=== PATIENT | female | born 1945 | race Hispanic/Latino ===

== ENCOUNTER 2019-12-24 17:05 | Observation (INO) | payer OTHER ==
[~2019-12-24] VITALS: Ht 154.9 cm; Wt 72.6 kg
[2019-12-24 17:19] LABS: BASOPHILS % (AUTO) 0.3 % (0.0-5.0); EOSINOPHILS % (AUTO) 0.8 % (0.0-8.0); HEMATOCRIT 32.1 % (36-48); LYMPHOCYTES % (AUTO) 20.6 % (21.0-51.0); MEAN CORPUSCULAR HEMOGLOBIN 27.9 pg (27.0-33.0); MEAN CORPUSCULAR HGB CONC 32.7 g/dL (32.0-36.0); MEAN CORPUSCULAR VOLUME 85.4 fL (79-99); MONOCYTES % (AUTO) 7.2 % (3.0-13.0); NEUTROPHILS % (AUTO) 70.7 % (40.0-77.0); PLATELET COUNT (AUTO) 272 K/uL (130-400); RED BLOOD CELL COUNT(AUTO) 3.76 MIL/uL (4.00-5.50); RED CELL DISTRIBUTION WIDTH 12.9 % (11.0-15.5); WHITE BLOOD COUNT (AUTO) 9.6 K/uL (4.8-10.8)
[2019-12-24 17:30] LABS: CREATININE 1.2 mg/dL (0.5-1.5); POTASSIUM 5.3 mmol/L (3.5-5.1)
[2019-12-24] MEDS ORDERED: ASPIRIN 325 MG TABLET ONE (17:33)
[2019-12-24] MEDS ORDERED: NITROGLYCERIN 1GM/1 INCH PACKET TD ONE (17:34)
[2019-12-24 17:35] LABS: ALBUMIN 4.2 g/dL (3.5-5.0); BILIRUBIN,TOTAL 0.4 mg/dL (0.2-1.0); TOTAL PROTEIN, SERUM 8.4 g/dL (6.0-8.3)
[2019-12-24 17:36] LABS: INR 0.95 (0.85-1.15); PARTIAL THROMBOPLASTIN TIME 25.2 SEC (26.3-35.5)
[2019-12-24 17:53] LABS: B-TYPE NATRIURETIC PEPTIDE 37 pg/mL (0-100)
[2019-12-24 19:56] LABS: APPEARANCE,URINE Clear (CLEAR); BILIRUBIN,URINE Negative (NEGATIVE); COLOR,URINE Yellow (YELLOW); GLUCOSE, URINE (UA) Negative (NEGATIVE); KETONES,URINE Trace mg/dL (NEGATIVE); LEUKOCYTE ESTERASE ,URINE Large (NEGATIVE); NITRATE,URINE Negative (NEGATIVE); OCCULT BLOOD,URINE Negative (NEGATIVE); PROTEIN,URINE Negative (NEGATIVE)
[2019-12-24 20:22] LABS: BACTERIA,URINE Many /HPF (None Seen); MUCUS,URINE Few LPF (None Seen); RBC,URINE 0-1 /HPF (0-1); SQUAMOUS EPITHELIAL CELL,UR 0-2 /HPF (0-2); WBC,URINE 26-50 /HPF (0-1)
[2019-12-24 20:26] LABS: RETICULOCYTE % (AUTO) 1.14 % (0.42-2.23)
[2019-12-24 21:31] LABS: FERRITIN 83 ng/mL (15-150); IRON, SERUM 34 mcg/dL (50-170)
[2019-12-24] MEDS ORDERED: MORPHINE SULFATE 2 MG/ML 1ML SYG IVP PRN (21:45)
[2019-12-24] MEDS ORDERED: ACETAMINOPHEN 325 MG TAB PO PRN (21:45)
[2019-12-24] MEDS ORDERED: NITROGLYCERIN 0.4 MG SL TAB SL PRN (21:45)
[2019-12-24] MEDS ORDERED: ONDANSETRON HCL 4 MG/2 ML VIAL IVP PRN (21:45)
--- NOTE | 2019-12-24 21:46 | NUR ---
ADMISSION PT ADMITTED FROM ER INTO ROOM 405, AWAKE, ALERT AND VERBALLY RESPONSIVE. NO C/O CHEST PAIN, OR DISTRESS AT THIS TIME. PT AND SPOUSE AT BEDSIDE ORIENTED TO ROOM, CALL FISHER WITHIN REACH, BED IN LOWEST POSITION. Addendum: 12/24/19 at 5811 by MELIZA COFFEY RN Amended: Links added.
[2019-12-24 21:50] VITALS: BP 144/65
[2019-12-24] MEDS: NITROGLYCERIN 1GM/1 INCH PACKET TD SCH (23:10)
[2019-12-24] MEDS ORDERED: LISI-613 PO (23:25)
[2019-12-24] MEDS ORDERED: PRAV20TA4 PO (23:25)
[2019-12-24] MEDS ORDERED: METF500T20 PO (23:25)
[2019-12-25 00:12] VITALS: BP 143/71
[2019-12-25 01:51] LABS: CREATINE KINASE, TOTAL 36 U/L (21-232); MYOGLOBIN 47 ng/mL (10-92); TROPONIN I < 0.04 ng/mL (0.00-0.06)
[2019-12-25 04:16] VITALS: BP 123/62
[2019-12-25] MEDS: NITROGLYCERIN 1GM/1 INCH PACKET TD SCH ×2 (04:59→10:00)
[2019-12-25 05:15] LABS: HEMATOCRIT 30.5 % (36-48); MEAN CORPUSCULAR HEMOGLOBIN 27.9 pg (27.0-33.0); MEAN CORPUSCULAR HGB CONC 32.8 g/dL (32.0-36.0); PLATELET COUNT (AUTO) 272 K/uL (130-400); RED BLOOD CELL COUNT(AUTO) 3.59 MIL/uL (4.00-5.50); WHITE BLOOD COUNT (AUTO) 8.2 K/uL (4.8-10.8)
[2019-12-25 05:32] LABS: BASOPHILS % (MANUAL) 1 % (0-2); EOSINOPHILS % (MANUAL) 1 % (1-6); LYMPHOCYTES % (MANUAL) 28 % (22-44); MAN.DIFF COMMENT-IMPRESSION MANUAL DIFFERENTIAL; MONOCYTES % (MANUAL) 5 % (2-9); SEGMENTED NEUTROPHILS % 65 % (40-70)
[2019-12-25 05:36] LABS: ALANINE AMINOTRANSFERASE 18 U/L (12-78); ALBUMIN 3.8 g/dL (3.5-5.0); ASPARTATE AMINOTRANSFERASE 15 U/L (10-37); BILIRUBIN,TOTAL 0.6 mg/dL (0.2-1.0); CARBON DIOXIDE 24 mmol/L (21-32); CHLORIDE 102 mmol/L (101-111); CREATINE KINASE, TOTAL 39 U/L (21-232); GLOMERULAR FILTR. RATE CALC 58 mL/min (>60); GLUCOSE,RANDOM 109 mg/dL (70-105); MYOGLOBIN 45 ng/mL (10-92); POTASSIUM 4.6 mmol/L (3.5-5.1); SODIUM SERUM 138 mmol/L (136-145); TOTAL PROTEIN, SERUM 8.6 g/dL (6.0-8.3); TROPONIN I < 0.04 ng/mL (0.00-0.06); UREA NITROGEN, BLOOD 22 mg/dL (7-18)
[2019-12-25 08:00] VITALS: BP 132/64
[2019-12-25] MEDS ORDERED: METOPROLOL TARTRATE 25 MG TAB PO SCH (09:00)
[2019-12-25] MEDS ORDERED: PANTOPRAZOLE SODIUM 40 MG TABLET.DR PO SCH (09:00)
[2019-12-25] MEDS ORDERED: ENOXAPARIN SODIUM 40 MG/0.4 ML SYRINGE SQ SCH (09:00)
[2019-12-25 11:00] VITALS: BP 134/59
[2019-12-25] MEDS ORDERED: SULF1TAB41 PO (12:38)
--- NOTE | 2019-12-25 13:46 | NUR ---
pt and stated understanding of all d/c instructions on atypical chest pain and urinary tract infection; also stated understanding to : return to ed for any return of chest pain symptoms, f/u w/ dr vega at [facility] in 3-5 days and electronic script sent to [facility] for bactrim; iv access removed and pt wheeled downstairs.
[2019-12-25] MEDS ORDERED: METFORMIN HCL 500 MG TABLET PO SCH (17:00)
[2019-12-25] MEDS ORDERED: LISINOPRIL 20 MG TABLET PO SCH (21:00)
[2019-12-25] MEDS ORDERED: ATORVASTATIN CALCIUM 10 MG TABLET PO SCH (21:00)
== END 2019-12-25 13:30 | disposition home or self-care (01) ==
LOC: EDH 17:05 → EDHIP 20:03 → 4BH 21:37
PROVIDERS: ADMIT Internal Medicine Critical Care Medicine; ATTEND Internal Medicine Critical Care Medicine
DX: R07.89 Other chest pain (principal); N39.0 Urinary tract infection, site not specified; E11.9 Type 2 diabetes mellitus without complications; E78.5 Hyperlipidemia, unspecified; I10 Essential (primary) hypertension; D64.9 Anemia, unspecified; N28.89 Other specified disorders of kidney and ureter; Z90.710 Acquired absence of both cervix and uterus; Z90.49 Acquired absence of other specified parts of digestive tract; Z79.4 Long term (current) use of insulin; Z79.899 Other long term (current) drug therapy; Z88.0 Allergy status to penicillin
CPT/HCPCS: 36415 ×2; 71045 ×2; 80053 ×2; 81001; 82550 ×3; 82728; 82948; 83540; 83874 ×2; 83880; 84484 ×4; 85025 ×2; 85045; 85610; 85730; 93005 ×3; 96372; 99285; G0378 ×14; J1650

== ENCOUNTER 2021-03-04 12:16 | Emergency (ER) | payer OTHER ==
[~2021-03-04] VITALS: Ht 157.5 cm; Wt 75.3 kg
[~2021-03-04 12:16] MED LIST: LISI20TA24 PO; METF-910 PO; PRAV20TA4 PO; SULF1TAB41 PO
[2021-03-04] MEDS ORDERED: ACETAMINOPHEN EXTRA STRENGTH 500 MG TABLET ONE (12:54)
[2021-03-04] MEDS ORDERED: DiphenhydrAMINE HCL 50 MG/ML VIAL ONE (12:54)
[2021-03-04] MEDS ORDERED: METOCLOPRAMIDE 10 MG/2 ML VIAL ONE (12:54)
[2021-03-04] MEDS ORDERED: SODIUM CHLORIDE 0.9% 1000ML 1,000 ML IV ONE (12:55)
[2021-03-04 12:59] LABS: BASOPHILS % (AUTO) 1.1 % (0.0-5.0); EOSINOPHILS % (AUTO) 3.1 % (0.0-8.0); LYMPHOCYTES % (AUTO) 23.5 % (21.0-51.0); MEAN CORPUSCULAR HEMOGLOBIN 27.6 pg (27.0-33.0); MEAN CORPUSCULAR HGB CONC 32.7 g/dL (32.0-36.0); MEAN CORPUSCULAR VOLUME 84.2 fL (79-99); MONOCYTES % (AUTO) 7.4 % (3.0-13.0); NEUTROPHILS % (AUTO) 64.6 % (40.0-77.0); PLATELET COUNT (AUTO) 249 K/uL (130-400); RED BLOOD CELL COUNT(AUTO) 3.92 MIL/uL (4.00-5.50); WHITE BLOOD COUNT (AUTO) 7.1 K/uL (4.8-10.8)
[2021-03-04 13:35] LABS: ALBUMIN 3.8 g/dL (3.5-5.0); BILIRUBIN,TOTAL 0.4 mg/dL (0.2-1.0); TOTAL PROTEIN, SERUM 7.9 g/dL (6.0-8.3)
[2021-03-04 13:49] LABS: APPEARANCE,URINE Clear (CLEAR); BILIRUBIN,URINE Negative (NEGATIVE); COLOR,URINE Yellow (YELLOW); GLUCOSE, URINE (UA) Negative (NEGATIVE); KETONES,URINE Negative (NEGATIVE); LEUKOCYTE ESTERASE ,URINE Moderate (NEGATIVE); NITRATE,URINE Negative (NEGATIVE); OCCULT BLOOD,URINE Negative (NEGATIVE); PH,URINE 7.5 (5.0-8.0); PROTEIN,URINE Negative (NEGATIVE)
[2021-03-04 14:14] LABS: BACTERIA,URINE Many /HPF (None Seen); RBC,URINE 0-1 /HPF (0-1)
[2021-03-04 14:15] LABS: SQUAMOUS EPITHELIAL CELL,UR Rare /HPF (0-2)
[2021-03-04] MEDS ORDERED: MORPHINE SULFATE 2 MG/ML 1ML SYG ONE (14:52)
[2021-03-04] MEDS ORDERED: LEVOFLOXACIN 500 MG TABLET PO SCH (15:15)
[2021-03-04] MEDS ORDERED: LEVOFLOXACIN 500 MG TABLET ONE (15:54)
== END 2021-03-04 16:34 | disposition home or self-care (01) ==
LOC: EDH 12:16
DX: N39.0 Urinary tract infection, site not specified (principal); R51.9 Headache, unspecified; K21.9 Gastro-esophageal reflux disease without esophagitis; E86.0 Dehydration; E11.9 Type 2 diabetes mellitus without complications; E78.5 Hyperlipidemia, unspecified; I10 Essential (primary) hypertension; Z90.49 Acquired absence of other specified parts of digestive tract; Z90.710 Acquired absence of both cervix and uterus; Z88.0 Allergy status to penicillin
CPT/HCPCS: 36415; 70450; 80053; 81001; 82550; 84484; 85025; 87040 ×2; 87077; 87088; 87186; 93005; 96361; 96374; 96375; 99285; J1200; J2765; J7030